=== PATIENT | male | born 1945 | race Caucasian/White ===

== ENCOUNTER 2017-10-23 11:37 | Inpatient (IN) | payer MEDICARE, OTHER ==
[~2017-10-23] VITALS: Ht 182.9 cm; Wt 83.6 kg
[~2017-10-23 11:37] MED LIST: ASPI81 PO; ATOR40TA49 PO; HYDR-3533 PO; IBUP800T23 PO; LEXA10TA PO; ZETI10TA5 PO
[2017-10-23 11:48] VITALS: BP 130/71; PULSE 65; RESP 18; TEMP 99.8; O2SAT 98
[2017-10-23] MEDS: RESP: ALBUTEROL 2.5 MG/IPRATROPIUM 0.5 MG NEB (SCH) INH ×2 (12:59→20:15)
[2017-10-23] MEDS ORDERED: methylPREDNISolone SOD SUCC 125 MG/2 ML VIAL IV PUSH ONE (13:00)
[2017-10-23] MEDS ORDERED: AZITHROMYCIN 250 MG TAB PO ONE (13:00)
[2017-10-23] MEDS ORDERED: ACETAMINOPHEN 650 MG SUPP PR ONE (13:00)
[2017-10-23] MEDS ORDERED: cefTRIAXone INJ 1,000 MG in SODIUM CHLORIDE 0.9% INJ 100 ML IV ONE (13:00)
[2017-10-23] MEDS ORDERED: SODIUM CHLORIDE 0.9% FLUSH 10 ML FLUSH IVF PRN (13:00)
--- NOTE | 2017-10-23 13:11 | PD ---
HPI Chief Complaint: Cold / Flu Symptoms Time Seen by Provider: 12:35 Travel History International Travel<30 days: Yes ([facility] ) Contact w/Intl Traveler<30days: [place] Traveled to: [facility] Traveled to known affect area: No History of Present Illness HPI 71-year-old normally very healthy male presents emergency department with 2 week history of progressively worsening productive cough, wheezing, and shortness of breath. Patient had shaking chills yesterday. Patient recently returned from a trip to [place], [facility], and the [facility]. Patient denies upper respiratory symptoms such as headache, sore throat, or ear pain. He has no abdominal pain. He has no nausea or vomiting. His chief complaint shortness of breath, cough, and wheezing. Patient has no previous history of lung disease. Patient's temperature in triage was 99.6. He was not tachycardic , and O2 sat was 97%. He has no known drug allergies. PFSH Past Medical History Heart Rhythm Problems: Yes (PAC'S, BRADYCARDIA (RESTING 40/MIN.)PT IS [employer].) High Cholesterol: Yes Cerebrovascular Accident: No Diminished Hearing: No Hypertension: Yes Myocardial Infarction: No Past Surgical History Coronary Artery Bypass Graft: Yes (triple bypass- aug 2006) Eye Surgery: Yes (CATARACT) Tonsillectomy: Yes Social History Alcohol Use: No (rarely) Tobacco Use: No Substance Use: No Allergies-Medications (Allergen,Severity, Reaction): Coded Allergies: No Known Allergies (Verified Adverse Reaction, Unknown, 10/23/17) Reported Meds & Prescriptions Reported Meds & Active Scripts Active Lortab 5 mg/325 mg (Hydrocodone/Acetaminophen 5 mg/325 mg) 1 Tab 1-2 Tab PO Q6HR PRN Ibuprofen 800 Mg Tab 800 Mg PO Q6H PRN Reported Lipitor 40 Mg Tab (Atorvastatin Calcium) 40 Mg Tab 40 Mg PO DAILY Zetia (Ezetimibe) 10 Mg Tab 10 Mg PO DAILY Lexapro (Escitalopram Oxalate) 10 Mg Tab 10 Mg PO DAILY Aspirin 81 Mg Tab 81 Mg PO DAILY Review of Systems Except as stated in HPI: all other systems reviewed are Neg General / Constitutional: Positive: Fever, Chills Eyes: No: Visual changes HENT: No: Headaches Cardiovascular: No: Chest Pain or Discomfort Respiratory: Positive: Cough, Shortness of Breath, Wheezing, Night Sweats, No: Sneezing, Orthopnea, Hemoptysis, Stridor, Pleuritic Pain, Other Gastrointestinal: No: Nausea, Vomiting, Diarrhea, Abdominal Pain Genitourinary: No: Dysuria Musculoskeletal: No: Pain Skin: No Rash Neurologic: No: Weakness Psychiatric: No: Depression Endocrine: No: Polydipsia Hematologic/Lymphatic: No: Easy Bruising Physical Exam Narrative GENERAL: Patient appears ill but not septic per SKIN: Warm and dry. Normal color. Normal turgor HEAD: Atraumatic. Normocephalic. EYES: Pupils equal and round. No scleral icterus. No injection or drainage. ENT: No nasal bleeding or discharge. Mucous membranes pink and moist. Pharynx is clear. Airways patent. TMs are clear bilaterally. NECK: Trachea midline. Supple nontender. CARDIOVASCULAR: Regular rate and rhythm. No murmurs gallops or rubs. RESPIRATORY: No accessory muscle use. Moderate wheezing throughout to auscultation. Moderate rales and rhonchi noted bilaterally. Breath sounds equal bilaterally. GASTROINTESTINAL: Abdomen soft, non-tender, nondistended. Hepatic and splenic margins not palpable. MUSCULOSKELETAL: Extremities without clubbing, cyanosis, or edema. No obvious deformities. NEUROLOGICAL: Awake and alert. No obvious cranial nerve deficits. Motor grossly within normal limits. Five out of 5 muscle strength in the arms and legs. Normal speech. PSYCHIATRIC: Appropriate mood and affect; insight and judgment normal. Data Data Last Documented VS Vital Signs Date Time Temp Pulse Resp B/P (MAP) Pulse Ox O2 Delivery O2 Flow Rate FiO2 10/23/17 11:48 99.8 65 18 130/71 (90) 98 Orders Orders Influenzae A/B Antigen (10/23/17 11:53) Group A Rapid Strep Screen (10/23/17 11:53) Electrocardiogram (10/23/17 12:46) Basic Metabolic Panel (Bmp) (10/23/17 12:46) Comprehensive Metabolic Panel (10/23/17 12:46) Lactic Acid Sepsis Protocol (10/23/17 12:46) Urinalysis - C+S If Indicated (10/23/17 12:46) Blood Culture (10/23/17 12:46) Sputum Culture And Gram Stain (10/23/17 12:46) Chest, Pa & Lat (10/23/17 12:46) Ecg Monitoring (10/23/17 12:46) Iv Access Insert/Monitor (10/23/17 12:46) Oximetry (10/23/17 12:46) Sodium Chloride 0.9% Flush (Ns Flush) (10/23/17 13:00) Ceftriaxone Inj (Rocephin Inj) (10/23/17 13:00) Azithromycin (Zithromax) (10/23/17 13:00) Acetaminophen Supp (Tylenol Supp) (10/23/17 13:00) Albuterol-Ipratropium Neb (Duoneb Neb) (10/23/17 13:00) Methylprednisolone So Succ Inj (Solumedr (10/23/17 13:00) Acetaminophen (Tylenol) (10/23/17 13:15) Strep Culture (Group A) (10/23/17 12:00) Sodium Chlor 0.9% 1000 Ml Inj (Ns 1000 M (10/23/17 16:04) Complete Blood Count With Diff (10/23/17 16:48) Labs Laboratory Tests Test 10/23/17 13:30 10/23/17 15:10 10/23/17 15:22 White Blood Count 15.2 TH/MM3 Red Blood Count 4.35 MIL/MM3 Hemoglobin 14.0 GM/DL Hematocrit 40.2 % Mean Corpuscular Volume 92.5 FL Mean Corpuscular Hemoglobin 32.3 PG Mean Corpuscular Hemoglobin Concent 34.9 % Red Cell Distribution Width 13.4 % Platelet Count 293 TH/MM3 Mean Platelet Volume 9.4 FL Neutrophils (%) (Auto) 72.8 % Lymphocytes (%) (Auto) 16.5 % Monocytes (%) (Auto) 8.9 % Eosinophils (%) (Auto) 1.4 % Basophils (%) (Auto) 0.4 % Neutrophils # (Auto) 11.1 TH/MM3 Lymphocytes # (Auto) 2.5 TH/MM3 Monocytes # (Auto) 1.4 TH/MM3 Eosinophils # (Auto) 0.2 TH/MM3 Basophils # (Auto) 0.1 TH/MM3 CBC Comment DIFF FINAL Differential Comment Urine Color YELLOW Urine Turbidity CLEAR Urine pH 7.0 Urine Specific [place] 1.024 Urine Protein 100 mg/dL Urine Glucose (UA) NEG mg/dL Urine Ketones NEG mg/dL Urine Occult Blood NEG Urine Nitrite NEG Urine Bilirubin NEG Urine Urobilinogen LESS THAN 2.0 MG/DL Urine Leukocyte Esterase NEG Urine WBC LESS THAN 1 /hpf Urine Mucus FEW /lpf Microscopic Urinalysis Comment CULT NOT INDICATED Lactic Acid Level 2.8 mmol/L MDM Medical Decision Making Medical Screen Exam Complete: Yes Emergency Medical Condition: Yes Differential Diagnosis Febrile illness. Pneumonia. Bronchitis. Wheezing. Narrative Course Patient appears medically stable at time of exam. Labs ordered including CBC, CMP, lactic acid, and coagulation studies. Blood cultures 2 as well as sputum cultures ordered. IV access is obtained. Patient is given 1000 mg Rocephin IV as well as 500 mg azithromycin p.o. Patient is given 650 mg Tylenol p.o. Patient is given 125 mg Solu-Medrol IV. Patient is given 1000 mL's normal saline bolus. Patient is given DuoNeb 3. Chest x-ray PA and lateral ordered. CBC showed leukocytosis of 15.2. CMP still pending at 1715 due to recollect. Lactic acid 2.8 Urinalysis is unremarkable. Patient is given 2 L normal saline bolus. Calls placed to hospitalist for admission. Sepsis Criteria SIRS Criteria (2 or more): Temp > 100.9 or < 96.8, WBC > 27392, < 4000 or > 10 % bands Sepsis Criteria (SIRS+source): Infect source susp/known Severe Sepsis (+one): Lactate >2 Criteria Outcome: Meets SIRS criteria, Meets sepsis criteria, Meets severe sepsis criteria Diagnosis Primary Impression: Sepsis Qualified Codes: A41.9 - Sepsis, unspecified organism Additional Impressions: Right lower lobe pneumonia Qualified Codes: J18.1 - Lobar pneumonia, unspecified organism Wheezing Admitting Information Admitting Physician Requests: Admit Disposition: DISCHARGE HOME Condition: Stable Jun Gimenez Oct 23, 2017 13:11
[2017-10-23] MEDS ORDERED: ACETAMINOPHEN 325 MG TAB PO ONE (13:15)
--- NOTE | 2017-10-23 14:31 | RADRPT ---
EXAM DATE/TIME: 10/23/2017 13:36 [facility] COMPARISON: No previous studies available for comparison. INDICATIONS : Short of breath, coughing, cold symptoms, and general weakness for 4 weeks MEDICAL HISTORY : Cardiovascular disease. SURGICAL HISTORY : CABG. ENCOUNTER: Initial ACUITY: 1 month PAIN SCORE: 0/10 LOCATION: Bilateral chest FINDINGS: Median sternotomy wires and postsurgical features of prior CABG. Very subtle patchy airspace disease in the lower lobes bilaterally. Cardiomediastinal contours are within normal limits. Bony thorax is i ntact. CONCLUSION: 1. Post surgical features with subtle bilateral lower lobe patchy airspace disease, presumably atelec tasis. Uri Suero MD on October 23, 2017 at 14:28 Board Certified Radiologist. This report was verified electronically.
[2017-10-23 15:56] LABS: BILIRUBIN, URINE NEG (NEG); BLOOD, URINE NEG (NEG); GLUCOSE,URINE NEG (NEG); KETONE, URINE NEG (NEG); MUCUS URINE FEW /lpf (OCC); NITRITE,URINE NEG (NEG); URINE COLOR YELLOW (YELLW/STRAW); URINE LEUKOCYTE ESTERASE NEG (NEG)
[2017-10-23 16:01] LABS: LACTIC ACID SEPSIS PROTOCOL 2.8 mmol/L (0.4-2.0)
[2017-10-23 16:55] LABS: AUTOMATED NEUTROPHIL # 11.1 TH/MM3 (1.8-7.7); BASOPHIL # 0.1 TH/MM3 (0-0.2); BASOPHIL % 0.4 % (0.0-2.0); EOSINOPHIL # 0.2 TH/MM3 (0-0.4); EOSINOPHIL % 1.4 % (0.0-4.0); HEMATOCRIT 40.2 % (39.0-51.0); LYMPH % 16.5 % (9.0-44.0); LYMPHOCYTE # 2.5 TH/MM3 (1.0-4.8); MEAN CELL VOLUME 92.5 FL (80.0-100.0); MEAN CORPUSCULAR HEMOGLOBIN 32.3 PG (27.0-34.0); MEAN CORPUSCULAR HGB CONC 34.9 % (32.0-36.0); MEAN PLATELET VOLUME 9.4 FL (7.0-11.0); MONO % 8.9 % (0.0-8.0); MONOCYTE # 1.4 TH/MM3 (0-0.9); NEUT % 72.8 % (16.0-70.0); PLATELET COUNT 293 TH/MM3 (150-450); RED BLOOD COUNT 4.35 MIL/MM3 (4.50-5.90); RED CELL DISTRIBUTION WIDTH 13.4 % (11.6-17.2); WHITE BLOOD COUNT 15.2 TH/MM3 (4.0-11.0)
[2017-10-23] MEDS: SODIUM CHLOR 0.9% 1000 ML INJ 1,000 ML IV SCH ×3 (17:19→21:28)
[2017-10-23 17:20] VITALS: BP 106/52; PULSE 68; RESP 27; O2SAT 93
[2017-10-23 17:22] VITALS: O2SAT 95
[2017-10-23 17:56] LABS: ALBUMIN 2.9 GM/DL (3.4-5.0); ALT (GPT) 20 U/L (12-78); AST (GOT) 26 U/L (15-37); BICARBONATE 22.6 MEQ/L (21.0-32.0); BLOOD UREA NITROGEN 14 MG/DL (7-18); CALCIUM 8.7 MG/DL (8.5-10.1); CHLORIDE 102 MEQ/L (98-107); CREATININE 1.31 MG/DL (0.60-1.30); GLOMERULAR FILTRATION RATE 54 ML/MIN (>89); GLUCOSE,RANDOM 185 MG/DL (74-106); SODIUM (NA) 137 MEQ/L (136-145)
[2017-10-23 17:59] LABS: ALKALINE PHOSPHATASE 86 U/L (45-117); TOTAL BILIRUBIN ADULT 0.5 MG/DL (0.2-1.0); TOTAL PROTEIN 7.2 GM/DL (6.4-8.2)
[2017-10-23] MEDS ORDERED: RESP: ALBUTEROL 2.5 MG/IPRATROPIUM 0.5 MG NEB (SCH) NEB ONE (18:00)
[2017-10-23] MEDS ORDERED: NALOXONE HCL 0.4 MG/ML AMP IV PUSH PRN (18:15)
[2017-10-23] MEDS ORDERED: SODIUM CHLORIDE 0.9% FLUSH 10 ML FLUSH IV FLUSH PRN (18:15)
[2017-10-23] MEDS ORDERED: guaiFENesin/DEXTROMETHORPHAN 200 MG/20 MG/10 ML CUP PO PRN (18:15)
[2017-10-23] MEDS ORDERED: RESP: ALBUTEROL 2.5 MG/3 ML NEB (PRN) INH (18:15)
[2017-10-23] MEDS ORDERED: SODIUM CHLOR 0.9% 1000 ML INJ 400 ML IV ONE (18:51)
[2017-10-23] MEDS ORDERED: VANCOMYCIN INJ 1,000 MG in SODIUM CHLOR 0.9% 250 ML INJ 250 ML IV STA (18:51)
[2017-10-23] MEDS ORDERED: SODIUM CHLOR 0.9% 1000 ML INJ 1,000 ML IV ONE ×2 (18:51)
--- NOTE | 2017-10-23 18:51 | HHI.HP ---
HPI Service [facility] Primary Care Physician Umair Perales, Admission Diagnosis Sepsis/Pneumonia Diagnoses: Chief Complaint: Coughing and shortness of breath Travel History International Travel<30 Days: Yes ([place] [facility] ) Contact w/Intl Traveler <30 Da: [place] Traveled to: [place], [facility], AND [facility] Traveled to Known Affected Are: No Sepsis Criteria SIRS Criteria (2 or more): RR > 20 or PaCO2 < 32, WBC > 63719, < 4000 or > 10 % bands Sepsis Criteria (SIRS+source): Infect source susp/known Severe Sepsis (+one): Lactate >2 Criteria Outcome: Meets severe sepsis criteria History of Present Illness 71-year-old white male with history of hyperlipidemia presents with a 4 week history of progressive worsening shortness of breath and persistent cough. He also reports associated sore throat and sinus congestion. He has had increased fatigue and weakness due to the persistent symptoms. He reports some mild fever but no significant chills. He denies any symptoms of dysuria nor any diarrhea. He has not had any nausea or vomiting but has had decreased oral intake. He had recently traveled to [facility] in the [facility] also with his at bedside who does not have any of his symptoms. He denies any history of asthma or any lung disease. He states taking [id number] medication has not improved his symptoms. 0 Review of Systems Constitutional: COMPLAINS OF: Fatigue, Fever, Chills, Change in appetite Endocrine: DENIES: Heat/cold intolerance Eyes: DENIES: Blurred vision, Eye pain, Vision loss Ears, nose, mouth, throat: COMPLAINS OF: Nasal discharge, Throat pain, Running Nose, DENIES: Hearing loss, Ear Pain, Sinus Pain Respiratory: COMPLAINS OF: Cough, Shortness of breath, DENIES: Sputum production Cardiovascular: DENIES: Chest pain, Palpitations, Dyspnea on Exertion, Lower Extremity Edema Gastrointestinal: DENIES: Abdominal pain, Black stools, Bloody stools, Constipation, Diarrhea, Nausea, Vomiting Musculoskeletal: DENIES: Joint pain, Muscle aches, Stiffness Integumentary: DENIES: Rash Hematologic/lymphatic: DENIES: Bruising, Lymphadenopathy Immunologic/allergic: DENIES: Eczema Neurologic: DENIES: Headache, Localized weakness, Paresthesias Psychiatric: DENIES: Anxiety, Depression, Suicidal Ideation Past Family Social History Past Medical History Hyperlipidemia Past Surgical History CABG. Cataract surgery. Reported Medications Aspirin 81 mg p.o. daily Lipitor 40 mg p.o. daily Lexapro 10 mg p.o. daily Zetia 10 mg p.o. daily Lortab 5/325 mg p.o. every 6 hours as needed for pain Ibuprofen 800 mg p.o. q. 6 as needed for pain Allergies: Coded Allergies: No Known Allergies (Verified Adverse Reaction, Unknown, 10/23/17) Family History Mother had [place] Father had colon cancer Social History Does not smoke cigarettes or drink alcohol Physical Exam Vital Signs Vital Signs Date Time Temp Pulse Resp B/P (MAP) Pulse Ox O2 Delivery O2 Flow Rate FiO2 10/23/17 17:22 95 Nasal Cannula 1.00 10/23/17 17:20 68 27 106/52 (70) 93 Room Air 10/23/17 11:48 99.8 65 18 130/71 (90) 98 Physical Exam GENERAL: This is a well-nourished, well-developed patient, in no apparent distress. SKIN: No rashes, ecchymoses or lesions. Cool and dry. HEAD: Atraumatic. Normocephalic. No temporal or scalp tenderness. EYES: Pupils equal round and reactive. Extraocular motions intact. No scleral icterus. No injection or drainage. ENT: Nose without bleeding, purulent drainage or septal hematoma. Oropharynx erythematous, NECK: Trachea midline. No JVD or lymphadenopathy. Supple, nontender, no meningeal signs. CARDIOVASCULAR: Regular rate and rhythm without murmurs, gallops, or rubs. RESPIRATORY: Left basilar crackles and rhonchi GASTROINTESTINAL: Abdomen soft, non-tender, nondistended. No hepato-splenomegaly , or palpable masses. No guarding. MUSCULOSKELETAL: Extremities without clubbing, cyanosis, or edema. NEUROLOGICAL: Awake and alert. Cranial nerves II through XII intact. Motor and sensory grossly within normal limits. Five out of 5 muscle strength in all muscle groups. Normal speech. Laboratory Laboratory Tests Test 10/23/17 13:30 10/23/17 15:10 10/23/17 15:22 10/23/17 17:25 White Blood Count 15.2 Red Blood Count 4.35 Hemoglobin 14.0 Hematocrit 40.2 Mean Corpuscular Volume 92.5 Mean Corpuscular Hemoglobin 32.3 Mean Corpuscular Hemoglobin Concent 34.9 Red Cell Distribution Width 13.4 Platelet Count 293 Mean Platelet Volume 9.4 Neutrophils (%) (Auto) 72.8 Lymphocytes (%) (Auto) 16.5 Monocytes (%) (Auto) 8.9 Eosinophils (%) (Auto) 1.4 Basophils (%) (Auto) 0.4 Neutrophils # (Auto) 11.1 Lymphocytes # (Auto) 2.5 Monocytes # (Auto) 1.4 Eosinophils # (Auto) 0.2 Basophils # (Auto) 0.1 CBC Comment DIFF FINAL Differential Comment Urine Color YELLOW Urine Turbidity CLEAR Urine pH 7.0 Urine Specific [place] 1.024 Urine Protein 100 Urine Glucose (UA) NEG Urine Ketones NEG Urine Occult Blood NEG Urine Nitrite NEG Urine Bilirubin NEG Urine Urobilinogen LESS THAN 2.0 Urine Leukocyte Esterase NEG Urine WBC LESS THAN 1 Urine Mucus FEW Microscopic Urinalysis Comment CULT NOT INDICATED Lactic Acid Level 2.8 Blood Urea Nitrogen 14 Creatinine 1.31 Random Glucose 185 Total Protein 7.2 Albumin 2.9 Calcium Level 8.7 Alkaline Phosphatase 86 Aspartate Amino Transf (AST/SGOT) 26 Alanine Aminotransferase (ALT/SGPT) 20 Total Bilirubin 0.5 Sodium Level 137 Potassium Level 4.0 Chloride Level 102 Carbon Dioxide Level 22.6 Anion Gap 12 Estimat Glomerular Filtration Rate 54 Test 10/23/17 17:30 Lactic Acid Level 4.7 Date/Time Source Procedure Growth Status 10/23/17 13:30 Blood Peripheral Aerobic Blood Culture Pending Received 10/23/17 13:30 Blood Peripheral Anaerobic Blood Culture Pending Received 10/23/17 13:30 Sputum Expectorated Sputum Gram Stain - Final Resulted 10/23/17 13:30 Sputum Expectorated Sputum Sputum Culture Pending Resulted Result Diagram: 10/23/17 1330 10/23/17 1725 Imaging Last Impressions Chest X-Ray 10/23/17 1246 Signed Impressions: Service Date/Time: Monday, October 23, 2017 13:36 - CONCLUSION: 1. Post surgical features with subtle bilateral lower lobe patchy airspace disease, presumably atelectasis. MD Jayne Pacheco VTE Risk Assessment Caprini VTE Risk Assessment: Mod/High Risk (score >= 2) Caprini Risk Assessment Model Point Value = 1 Point Value = 2 Point Value = 3 Point Value = 5 Age 41-60 Minor surgery BMI > 25 kg/m2 Swollen legs Varicose veins or History of unexplained or recurrent spontaneous Oral contraceptives or hormone replacement Sepsis (< 1 month) Serious lung disease, including pneumonia (< 1 month) Abnormal pulmonary function Acute myocardial infarction Congestive heart failure (< 1 month) History of inflammatory bowel disease Medical patient at bed rest Age 61-74 Arthroscopic surgery Major open surgery (> 45 min) Laparoscopic surgery (> 45 min) Malignancy Confined to bed (> 72 hours) Immobilizing plaster cast Central venous access Age >= 75 History of VTE Family history of VTE Factor V Leiden Prothrombin [id number] Lupus anticoagulant Anticardiolipin antibodies Elevated serum homocysteine Heparin-induced thrombocytopenia Other congenital or acquired thrombophilia Stroke (< 1 month) Elective arthroplasty Hip, pelvis, or leg fracture Acute spinal cord injury (< 1 month) Prophylaxis Regimen Total Risk Factor Score Risk Level Prophylaxis Regimen 0-1 Low Early ambulation 2 Moderate Order ONE of the following: *Sequential Compression Device (SCD) *Heparin 5000 units SQ BID 3-4 Higher Order ONE of the following medications: *Heparin 5000 units SQ TID *Enoxaparin/Lovenox 40 mg SQ daily (WT < 150 kg, CrCl > 30 mL/min) *Enoxaparin/Lovenox 30 mg SQ daily (WT < 150 kg, CrCl > 10-29 mL/min) *Enoxaparin/Lovenox 30 mg SQ BID (WT < 150 kg, CrCl > 30 mL/min) AND/OR *Sequential Compression Device (SCD) 5 or more Highest Order ONE of the following medications: *Heparin 5000 units SQ TID (Preferred with Epidurals) *Enoxaparin/Lovenox 40 mg SQ daily (WT < 150 kg, CrCl > 30 mL/min) *Enoxaparin/Lovenox 30 mg SQ daily (WT < 150 kg, CrCl > 10-29 mL/min) *Enoxaparin/Lovenox 30 mg SQ BID (WT < 150 kg, CrCl > 30 mL/min) AND *Sequential Compression Device (SCD) Assessment and Plan Assessment and Plan 1. Severe sepsis present on admission due to likely underlying community- acquired pneumonia with presenting symptoms of leukocytosis and tachypnea -IV fluid hydration, IV Rocephin and Zithromax with repeat lactic acid pending. Bronchodilators and supportive care. Follow-up with blood cultures. Consider infectious disease consultation if symptoms does not improve due to recent international travels. 2. History of hyperlipidemia- continue with Zetia and Lipitor. 3. DVT prophylaxis Lovenox. Physician Certification 2 Midnight Certification Type: Admission for Inpatient Services Order for Inpatient Services The services are ordered in accordance with Medicare regulations or non- Medicare payer requirements, as applicable. In the case of services not specified as inpatient-only, they are appropriately provided as inpatient services in accordance with the 2-midnight benchmark. Estimated LOS (days): 3 days is the estimated time the patient will need to remain in the hospital, assuming treatment plan goals are met and no additional complications. Post-Hospital Plan: Home Glory Anaya MD Oct 23, 2017 18:51
[2017-10-23] MEDS ORDERED: GENTAMICIN INJ 200 MG in SODIUM CHLORIDE 0.9% INJ 100 ML IV ONE (20:00)
[2017-10-23 21:00] VITALS: PULSE 86
[2017-10-23] MEDS: SODIUM CHLORIDE 0.9% FLUSH 10 ML FLUSH IV FLUSH SCH (21:00)
[2017-10-23] MEDS: ENOXAPARIN SODIUM 40 MG/0.4 ML SYRINGE SQ SCH (21:36)
[2017-10-23 22:19] VITALS: BP 147/64; PULSE 87; RESP 20; TEMP 98.4; O2SAT 95
[2017-10-24] VITALS (12 sets, daily range): BP systolic 130–166; BP diastolic 61–77; PULSE 57–87; RESP 14–20; TEMP 97.8–98.8; O2SAT 90–98
[2017-10-24] MEDS: SODIUM CHLOR 0.9% 1000 ML INJ 1,000 ML IV SCH ×2 (05:25→16:25)
[2017-10-24 07:27] LABS: AUTOMATED NEUTROPHIL # 12.3 TH/MM3 (1.8-7.7); HEMOGLOBIN 12.2 GM/DL (13.0-17.0); LYMPH % 7.5 % (9.0-44.0); MEAN CELL VOLUME 91.9 FL (80.0-100.0); MEAN CORPUSCULAR HEMOGLOBIN 31.3 PG (27.0-34.0); MEAN PLATELET VOLUME 8.1 FL (7.0-11.0); MONO % 4.3 % (0.0-8.0); MONOCYTE # 0.6 TH/MM3 (0-0.9); NEUT % 88.2 % (16.0-70.0); PLATELET COUNT 218 TH/MM3 (150-450); RED BLOOD COUNT 3.91 MIL/MM3 (4.50-5.90); RED CELL DISTRIBUTION WIDTH 13.2 % (11.6-17.2)
[2017-10-24 08:07] LABS: BICARBONATE 20.9 MEQ/L (21.0-32.0); CALCIUM 8.6 MG/DL (8.5-10.1); CREATININE 0.79 MG/DL (0.60-1.30)
[2017-10-24] MEDS: RESP: ALBUTEROL 2.5 MG/IPRATROPIUM 0.5 MG NEB (SCH) INH ×4 (08:42→19:24)
[2017-10-24] MEDS: SODIUM CHLORIDE 0.9% FLUSH 10 ML FLUSH IV FLUSH SCH ×2 (09:00→20:59)
--- NOTE | 2017-10-24 09:53 | EKG ---
Date Performed: 10/23/2017 Time Performed: 13:50:58 PTAGE: 71 years EKG: Sinus rhythm WITH SINUS ARRHYTHMIA INCOMPLETE RIGHT BUNDLE BRANCH BLOCK MODERATE ST DEPRESSION PROLONGED QT INTER MALU ABNORMAL ECG PREVIOUS TRACING : 08/27/2007 10.54 DOCTOR: Rohit Rosales Interpretating Date/Time 10/24/2017 09:51:33
[2017-10-24] MEDS ORDERED: cefTRIAXone INJ 1,000 MG in SODIUM CHLORIDE 0.9% INJ 100 ML IV SCH (13:00)
[2017-10-24] MEDS ORDERED: AZITHROMYCIN INJ 500 MG in SODIUM CHLOR 0.9% 250 ML INJ 250 ML IV SCH (14:00)
--- NOTE | 2017-10-24 15:22 | PD.ID.CON ---
History of Present Illness Service ID Consult Requested By Reason for Consult Evaluation and management of sepsis, pneumonia Primary Care Physician Umair Perales, Diagnoses: History of Present Illness is a 71 y/o CM with history of hyperlipidemia presents with a 4 week history of progressive worsening shortness of breath and persistent cough. He also reports associated sore throat and sinus congestion. He has had increased fatigue and weakness due to the persistent symptoms. He reports some mild fever but no significant chills. He denies any symptoms of dysuria nor any diarrhea. He has not had any nausea or vomiting but has had decreased oral intake. He had recently traveled to [place], [facility] and the [facility] in Sep 2017. His who was also with him for this journey is at his bedside and does not have any of his symptoms. He denies any history of asthma or any lung disease. He states taking njjd-ndt-[id number] medication has not improved his symptoms. He denies any body aches Denies any petechia or any subq or mucosal bleeding. He denies any headaches, myalgias or body aches. He denies any pain in calves. ID consulted for evaluation and mment of Sepsis, pneumonia. Review of Systems Constitutional: COMPLAINS OF: Fatigue, DENIES: Diaphoretic episodes, Fever, Weight gain, Weight loss, Chills, Dizziness, Change in appetite, Night Sweats Endocrine: DENIES: Heat/cold intolerance, Polydipsia, Polyuria, Polyphagia Eyes: DENIES: Blurred vision, Diplopia, Eye inflammation, Eye pain, Vision loss , Photosensitivity, Double Vision Ears, nose, mouth, throat: DENIES: Tinnitus, Hearing loss, Vertigo, Nasal discharge, Oral lesions, Throat pain, Hoarseness, Ear Pain, Running Nose, Epistaxis, Sinus Pain, Toothache, Odynophagia Respiratory: COMPLAINS OF: Cough, Shortness of breath, DENIES: Apneas, Snoring , Wheezing, Hemoptysis, Sputum production Cardiovascular: DENIES: Chest pain, Palpitations, Syncope, Dyspnea on Exertion , PND, Lower Extremity Edema, Orthopnea, Claudication Gastrointestinal: DENIES: Abdominal pain, Black stools, Bloody stools, Constipation, Diarrhea, Nausea, Vomiting, Difficulty Swallowing, Anorexia Genitourinary: DENIES: Sexual dysfunction, Urinary frequency, Urinary incontinence, Urgency, Hematuria, Dysuria, Nocturia, Penile Discharge, Testicular Pain, Testicular Swelling Musculoskeletal: DENIES: Joint pain, Muscle aches, Stiffness, Joint Swelling, Back pain, Neck pain Integumentary: DENIES: Abnormal pigmentation, Nail changes, Pruritus, Rash Hematologic/lymphatic: DENIES: Bruising, Lymphadenopathy Immunologic/allergic: DENIES: Eczema, Urticaria Neurologic: DENIES: Abnormal gait, Headache, Localized weakness, Paresthesias, Seizures, Speech Problems, Tremor, Poor Balance Psychiatric: DENIES: Anxiety, Confusion, Mood changes, Depression, Hallucinations, Agitation, Suicidal Ideation, Homicidal Ideation, Delusions Except as stated in HPI: all other systems reviewed are Neg Past Family Social History Allergies: Coded Allergies: No Known Allergies (Verified Allergy, Unknown, 10/23/17) Past Medical History Hyperlipidemia Past Surgical History CABG. Cataract surgery. Reported Medications Reported Meds & Active Scripts Active Lortab 5 mg/325 mg (Hydrocodone/Acetaminophen 5 mg/325 mg) 1 Tab 1-2 Tab PO Q6HR PRN Ibuprofen 800 Mg Tab 800 Mg PO Q6H PRN Reported Lipitor 40 Mg Tab (Atorvastatin Calcium) 40 Mg Tab 40 Mg PO DAILY Zetia (Ezetimibe) 10 Mg Tab 10 Mg PO DAILY Lexapro (Escitalopram Oxalate) 10 Mg Tab 10 Mg PO DAILY Aspirin 81 Mg Tab 81 Mg PO DAILY Active Ordered Medications Current Medications Medications (Trade) Dose Ordered Sig/Marlena Route Start Time Stop Time Status Last Admin Sodium Chloride 1,000 ml @ 100 mls/hr Q10H IV 10/23/17 19:00 10/24/17 05:25 (NS Flush) 2 ml UNSCH PRN IV FLUSH 10/23/17 18:15 (NS Flush) 2 ml BID IV FLUSH 10/23/17 21:00 (Narcan Inj) 0.4 mg UNSCH PRN IV PUSH 10/23/17 18:15 Ceftriaxone Sodium 1000 mg/ Sodium Chloride 100 ml @ 200 mls/hr Q24H IV 10/24/17 13:00 10/24/17 12:49 Azithromycin 500 mg/Sodium Chloride 250 ml @ 250 mls/hr Q24H IV 10/24/17 14:00 10/24/17 14:05 (Duoneb Neb) 1 ampule QID NEB INH 10/23/17 20:00 10/24/17 08:42 (Albuterol Neb) 2.5 mg Q2HR NEB PRN INH 10/23/17 18:15 (Robitussin Dm 200-20 Mg/10 ml Liq) 10 ml Q4H PRN PO 10/23/17 18:15 (Lovenox Inj) 40 mg Q24H SQ 10/23/17 20:00 10/23/17 21:36 Family History Mother had MT Father had colon cancer Social History Does not smoke cigarettes or drink alcohol. Reports he has participated in [employer] and is very active. Physical Exam Vital Signs Vital Signs Date Time Temp Pulse Resp B/P (MAP) Pulse Ox O2 Delivery O2 Flow Rate FiO2 10/24/17 12:00 97.8 62 20 130/61 (84) 94 10/24/17 11:50 64 10/24/17 08:00 Room Air 10/24/17 08:00 98.8 75 20 155/72 (99) 95 10/24/17 07:56 87 10/24/17 05:37 98.8 71 16 166/77 (106) 90 10/24/17 04:00 Room Air 10/24/17 04:00 65 10/24/17 02:21 98.6 77 14 132/63 (86) 98 10/24/17 00:00 75 10/24/17 00:00 Room Air 10/23/17 22:19 98.4 87 20 147/64 (91) 95 10/23/17 21:00 86 10/23/17 21:00 Room Air 10/23/17 17:22 95 Nasal Cannula 1.00 10/23/17 17:20 68 27 106/52 (70) 93 Room Air Physical Exam GENERAL: This is a well-nourished, well-developed patient, in no apparent distress. SKIN: No rashes, ecchymoses or lesions. Cool and dry. HEAD: Atraumatic. Normocephalic. No temporal or scalp tenderness. EYES: Pupils equal round and reactive. Extraocular motions intact. No scleral icterus. No injection or drainage. ENT: Nose without bleeding, purulent drainage or septal hematoma. Throat with erythema, tonsillar hypertrophy but no exudate. Uvula midline. Airway patent. NECK: Trachea midline. Supple, nontender, no meningeal signs. CARDIOVASCULAR: HS audible. RESPIRATORY: Clear to auscultation. Breath sounds equal bilaterally. GASTROINTESTINAL: Abdomen soft, non-tender, nondistended. MUSCULOSKELETAL: Extremities without clubbing, cyanosis, or edema. NEUROLOGICAL: Awake and alert. Non focal exam. Psych cooperative IV line sites with no e.o infection. Laboratory Laboratory Tests Test 10/23/17 15:22 10/23/17 17:25 10/23/17 17:30 10/24/17 06:50 Lactic Acid Level 2.8 4.7 Blood Urea Nitrogen 14 17 Creatinine 1.31 0.79 Random Glucose 185 166 Total Protein 7.2 Albumin 2.9 Calcium Level 8.7 8.6 Alkaline Phosphatase 86 Aspartate Amino Transf (AST/SGOT) 26 Alanine Aminotransferase (ALT/SGPT) 20 Total Bilirubin 0.5 Sodium Level 137 138 Potassium Level 4.0 5.0 Chloride Level 102 111 Carbon Dioxide Level 22.6 20.9 Anion Gap 12 6 Estimat Glomerular Filtration Rate 54 97 White Blood Count 14.0 Red Blood Count 3.91 Hemoglobin 12.2 Hematocrit 36.0 Mean Corpuscular Volume 91.9 Mean Corpuscular Hemoglobin 31.3 Mean Corpuscular Hemoglobin Concent 34.0 Red Cell Distribution Width 13.2 Platelet Count 218 Mean Platelet Volume 8.1 Neutrophils (%) (Auto) 88.2 Lymphocytes (%) (Auto) 7.5 Monocytes (%) (Auto) 4.3 Eosinophils (%) (Auto) 0.0 Basophils (%) (Auto) 0.0 Neutrophils # (Auto) 12.3 Lymphocytes # (Auto) 1.0 Monocytes # (Auto) 0.6 Eosinophils # (Auto) 0.0 Basophils # (Auto) 0.0 CBC Comment DIFF FINAL Differential Comment Date/Time Source Procedure Growth Status 10/23/17 13:30 Blood Peripheral Aerobic Blood Culture - Preliminary NO GROWTH IN 1 DAY Resulted 10/23/17 13:30 Blood Peripheral Anaerobic Blood Culture - Preliminary NO GROWTH IN 1 DAY Resulted 10/23/17 13:30 Sputum Expectorated Sputum Gram Stain - Final Resulted 10/23/17 13:30 Sputum Expectorated Sputum Sputum Culture - Preliminary HEAVY GROWTH NORMAL RESPIRATORY STEPHANIE... Resulted Result Diagram: 10/24/17 0650 10/24/17 0650 Imaging Last Impressions Chest X-Ray 10/23/17 1246 Signed Impressions: Service Date/Time: Monday, October 23, 2017 13:36 - CONCLUSION: 1. Post surgical features with subtle bilateral lower lobe patchy airspace disease, presumably atelectasis. Uri Suero MD Assessment and Plan Assessment and Plan Severe sepsis present on admission Pneumonia Elevated lactic acid: sepsis related. Laryngitis with faint voice. Acute renal failure on admission: likely sepsis related or prerenal now resolved. Recs: DC Vanco IV DC Ceftriaxone IV No more Genta needed DC Azithro oral. Start Levaquin oral. CT chest with PE protocol r.o PE or pneumonitis/pneumonia better imaging matt in view of extensive travel history. Urine legionella antigen Urine pneumo antigen Follow cultures follow clinically. If CT chest ok, all other cultures negative and clinically improved on levaquin will consider discharge home in am. nitish talbert patient and in room. Peyton Sanchez MD Oct 24, 2017 15:22
[2017-10-24] MEDS: LEVOFLOXACIN 500 MG TAB PO SCH (16:24)
--- NOTE | 2017-10-24 16:55 | HHI.PR ---
Subjective Remarks In bed with sob, wheezing and nonproductive cough. No fevr or chills No n/v/d/c. Objective Vitals Vital Signs Date Time Temp Pulse Resp B/P (MAP) Pulse Ox O2 Delivery O2 Flow Rate FiO2 10/24/17 16:00 97.8 59 20 138/63 (88) 96 10/24/17 12:00 97.8 62 20 130/61 (84) 94 10/24/17 11:50 64 10/24/17 08:00 Room Air 10/24/17 08:00 98.8 75 20 155/72 (99) 95 10/24/17 07:56 87 10/24/17 05:37 98.8 71 16 166/77 (106) 90 10/24/17 04:00 Room Air 10/24/17 04:00 65 10/24/17 02:21 98.6 77 14 132/63 (86) 98 10/24/17 00:00 75 10/24/17 00:00 Room Air 10/23/17 22:19 98.4 87 20 147/64 (91) 95 10/23/17 21:00 86 10/23/17 21:00 Room Air 10/23/17 17:22 95 Nasal Cannula 1.00 10/23/17 17:20 68 27 106/52 (70) 93 Room Air I/O 10/23/17 10/23/17 10/23/17 10/24/17 10/24/17 10/24/17 07:00 15:00 23:00 07:00 15:00 23:00 Intake Total 1100 ml 880 ml 250 ml Balance 1100 ml 880 ml 250 ml Intake Oral 780 ml IV Total 1100 ml 100 ml 250 ml # Voids 3 Result Diagram: 10/24/17 0650 10/24/17 0650 Imaging Last Impressions Chest X-Ray 10/23/17 1246 Signed Impressions: Service Date/Time: Monday, October 23, 2017 13:36 - CONCLUSION: 1. Post surgical features with subtle bilateral lower lobe patchy airspace disease, presumably atelectasis. Uri Suero MD Objective Remarks GENERAL: This is a well-nourished, well-developed patient, in no apparent distress. CARDIOVASCULAR: Regular rate and rhythm without murmurs, gallops, or rubs. RESPIRATORY: Left basilar crackles and rhonchi GASTROINTESTINAL: Abdomen soft, non-tender, nondistended. No hepato-splenomegaly , or palpable masses. No guarding. MUSCULOSKELETAL: Extremities without clubbing, cyanosis, or edema. NEUROLOGICAL: Awake and alert. Cranial nerves II through XII intact. Motor and sensory grossly within normal limits. Five out of 5 muscle strength in all muscle groups. Normal speech. A/P Assessment and Plan 1. Severe sepsis present on admission due to likely underlying community- acquired pneumonia with presenting symptoms of leukocytosis and tachypnea -IV fluid hydration, IV Rocephin and Zithromax with repeat lactic acid pending. Bronchodilators and supportive care. Follow-up with blood cultures. Consult infectious disease, appreciate recommendations, discussed with Dr Daniel STEVENS recent international travels. DC IV abx . Start Levaquin oral. CT chest with PE protocol r.o PE or pneumonitis/pneumonia better imaging matt in view of extensive travel history. Check Urine legionella antigen, Urine pneumo antigen Follow cultures follow clinically. If CT chest ok, all other cultures negative and clinically improved on levaquin will consider discharge home in am. 2. History of hyperlipidemia- continue with Zetia and Lipitor. 3. DVT prophylaxis Lovenox. Discussed with the patient, nurse, ID specialist Faye Van MD Oct 24, 2017 16:55
[2017-10-24] MEDS ORDERED: ACETAMINOPHEN/CODEINE ELIX 120 MG/12 MG/5 ML CUP PO PRN (17:00)
[2017-10-24] MEDS ORDERED: predniSONE 20 MG TAB PO ONE (17:15)
[2017-10-24] MEDS ORDERED: RESP: ALBUTEROL 2.5 MG/IPRATROPIUM 0.5 MG NEB (PRN) ONE (18:31)
[2017-10-24] MEDS ORDERED: IOHEXOL 350 MG/ML 10 ML VIAL (for RAD DIAG) IVCONTRAST ONE (20:45)
[2017-10-24] MEDS: guaiFENesin E.R. 600 MG TAB PO SCH (20:58)
[2017-10-24] MEDS: ENOXAPARIN SODIUM 40 MG/0.4 ML SYRINGE SQ SCH (20:58)
[2017-10-24] MEDS: predniSONE 20 MG TAB PO SCH (20:58)
--- NOTE | 2017-10-24 21:05 | RADRPT ---
EXAM DATE/TIME: 10/24/2017 20:29 [facility] COMPARISON: CHEST PA & LAT, October 23, 2017, 13:36. INDICATIONS : Shortness of breath; rule out pulmonary embolus. IV CONTRAST: 74 cc Omnipaque 350 (iohexol) IV RADIATION DOSE: 9.33 CTDIvol (mGy) MEDICAL HISTORY : Cardiovascular disease. Hypertension. SURGICAL HISTORY : CABG ENCOUNTER: Initial ACUITY: 1 day PAIN SCALE: 0/10 LOCATION: chest TECHNIQUE: Volumetric scanning of the chest was performed using a pulmonary embolism protocol MIP images were re constructed. Using automated exposure control and adjustment of the mA and/or kV according to patien t size, radiation dose was kept as low as reasonably achievable to obtain optimal diagnostic quality images. DICOM format image data is available electronically for review and comparison. Follow-up recommendations for detected pulmonary nodules are based at a minimum on nodule size and pa tient risk factors according to Fleischner Society Guidelines. FINDINGS: There is minimal patchy ground glass infiltrate right upper lobe, right middle lobe and lower lobes a s well as the left upper lobe. There is bronchiectasis with peribronchial thickening. There is adenop athy in the mediastinum with prominent subcarinal node measuring 1.5 cm, bilateral hilar adenopathy u p to 1.7 cm on the right, and calcified left hilar 1.1 cm node. Coronary artery calcification is pres ent. Calcified splenic granulomas as well as calcified left lower lobe granuloma and hepatic granulom a identified. Small bilateral effusions. No evidence of pulmonary embolism. CONCLUSION: No evidence of pulmonary embolism. Bilateral scattered pulmonary infiltrates. Please see above discus thai. Jensen Crowley MD on October 24, 2017 at 21:02 Board Certified Radiologist. This report was verified electronically.
[2017-10-24 21:54] LABS: LACTIC ACID SEPSIS PROTOCOL 3.9 mmol/L (0.4-2.0)
[2017-10-25] VITALS (7 sets, daily range): BP systolic 136–150; BP diastolic 62–69; PULSE 64–78; RESP 16–24; TEMP 97.6–98.4; O2SAT 90–97
[2017-10-25] MEDS: SODIUM CHLOR 0.9% 1000 ML INJ 1,000 ML IV SCH ×2 (04:00→12:40)
[2017-10-25] MEDS: RESP: ALBUTEROL 2.5 MG/IPRATROPIUM 0.5 MG NEB (SCH) INH ×2 (08:27→12:00)
[2017-10-25] MEDS: SODIUM CHLORIDE 0.9% FLUSH 10 ML FLUSH IV FLUSH SCH (09:00)
[2017-10-25 09:15] LABS: BASOPHIL % 0.1 % (0.0-2.0); HEMATOCRIT 36.2 % (39.0-51.0); HEMOGLOBIN 12.4 GM/DL (13.0-17.0); LYMPH % 5.8 % (9.0-44.0); LYMPHOCYTE # 1.2 TH/MM3 (1.0-4.8); MEAN CELL VOLUME 91.8 FL (80.0-100.0); MEAN CORPUSCULAR HEMOGLOBIN 31.5 PG (27.0-34.0); MEAN CORPUSCULAR HGB CONC 34.3 % (32.0-36.0); MEAN PLATELET VOLUME 8.4 FL (7.0-11.0); MONO % 7.6 % (0.0-8.0); MONOCYTE # 1.6 TH/MM3 (0-0.9); NEUT % 86.5 % (16.0-70.0); PLATELET COUNT 281 TH/MM3 (150-450); RED BLOOD COUNT 3.95 MIL/MM3 (4.50-5.90); RED CELL DISTRIBUTION WIDTH 13.5 % (11.6-17.2); WHITE BLOOD COUNT 20.9 TH/MM3 (4.0-11.0)
[2017-10-25] MEDS: guaiFENesin E.R. 600 MG TAB PO SCH (09:23)
[2017-10-25] MEDS: LEVOFLOXACIN 500 MG TAB PO SCH (09:23)
[2017-10-25] MEDS: predniSONE 20 MG TAB PO SCH (09:23)
[2017-10-25 10:08] LABS: CALCIUM 8.7 MG/DL (8.5-10.1); CREATININE 0.88 MG/DL (0.60-1.30)
[2017-10-25] MEDS ORDERED: guaiFENesin ER PO (10:11)
[2017-10-25] MEDS ORDERED: LEVA500T33 PO (10:11)
[2017-10-25] MEDS ORDERED: PRED20 PO (10:11)
--- NOTE | 2017-10-25 10:12 | HHI.DS ---
Discharge Summary Admission Date Oct 23, 2017 at 18:02 Discharge Date: Oct 25, 2017 Admitting Diagnosis Sepsis/Pneumonia (1) Diabetes ICD Code: E11.9 - Type 2 diabetes mellitus without complications (2) Hyperlipidemia ICD Code: E78.5 - Hyperlipidemia, unspecified (3) Acute respiratory failure ICD Code: J96.00 - Acute respiratory failure, unspecified whether with hypoxia or hypercapnia Procedures none Brief History - From Admission 71-year-old white male with history of hyperlipidemia presents with a 4 week history of progressive worsening shortness of breath and persistent cough. He also reports associated sore throat and sinus congestion. He has had increased fatigue and weakness due to the persistent symptoms. He reports some mild fever but no significant chills. He denies any symptoms of dysuria nor any diarrhea. He has not had any nausea or vomiting but has had decreased oral intake. He had recently traveled to [facility] in the [facility] also with his at bedside who does not have any of his symptoms. He denies any history of asthma or any lung disease. He states taking vwxa-zaq-lgbyybx medication has not improved his symptoms. 0 CBC/BMP: 10/25/17 0809 10/25/17 0809 Significant Findings Laboratory Tests Test 10/23/17 13:30 10/23/17 15:10 10/23/17 15:22 10/23/17 17:25 White Blood Count 15.2 TH/MM3 (4.0-11.0) Red Blood Count 4.35 MIL/MM3 (4.50-5.90) Neutrophils (%) (Auto) 72.8 % (16.0-70.0) Monocytes (%) (Auto) 8.9 % (0.0-8.0) Neutrophils # (Auto) 11.1 TH/MM3 (1.8-7.7) Monocytes # (Auto) 1.4 TH/MM3 (0-0.9) Urine Protein 100 mg/dL (NEG-TRACE) Urine Mucus FEW /lpf (OCC) Lactic Acid Level 2.8 mmol/L (0.4-2.0) Creatinine 1.31 MG/DL (0.60-1.30) Random Glucose 185 MG/DL (74-106) Albumin 2.9 GM/DL (3.4-5.0) Estimat Glomerular Filtration Rate 54 ML/MIN (>89) Test 10/23/17 17:30 10/24/17 06:50 10/24/17 21:21 10/25/17 00:40 Lactic Acid Level 4.7 mmol/L (0.4-2.0) 3.9 mmol/L (0.4-2.0) 2.5 mmol/L (0.4-2.0) White Blood Count 14.0 TH/MM3 (4.0-11.0) Red Blood Count 3.91 MIL/MM3 (4.50-5.90) Hemoglobin 12.2 GM/DL (13.0-17.0) Hematocrit 36.0 % (39.0-51.0) Neutrophils (%) (Auto) 88.2 % (16.0-70.0) Lymphocytes (%) (Auto) 7.5 % (9.0-44.0) Neutrophils # (Auto) 12.3 TH/MM3 (1.8-7.7) Random Glucose 166 MG/DL (74-106) Chloride Level 111 MEQ/L (98-107) Carbon Dioxide Level 20.9 MEQ/L (21.0-32.0) Test 10/25/17 08:09 10/25/17 09:15 White Blood Count 20.9 TH/MM3 (4.0-11.0) Red Blood Count 3.95 MIL/MM3 (4.50-5.90) Hemoglobin 12.4 GM/DL (13.0-17.0) Hematocrit 36.2 % (39.0-51.0) Neutrophils (%) (Auto) 86.5 % (16.0-70.0) Lymphocytes (%) (Auto) 5.8 % (9.0-44.0) Neutrophils # (Auto) 18.0 TH/MM3 (1.8-7.7) Monocytes # (Auto) 1.6 TH/MM3 (0-0.9) Blood Urea Nitrogen 23 MG/DL (7-18) Random Glucose 128 MG/DL (74-106) Chloride Level 111 MEQ/L (98-107) Estimat Glomerular Filtration Rate 86 ML/MIN (>89) Imaging Last Impressions CT Angiography 10/24/17 0000 Signed Impressions: Service Date/Time: Tuesday, October 24, 2017 20:29 - CONCLUSION: No evidence of pulmonary embolism. Bilateral scattered pulmonary infiltrates. Please see above discussion. Jensen Crowley MD Chest X-Ray 10/23/17 1246 Signed Impressions: Service Date/Time: Monday, October 23, 2017 13:36 - CONCLUSION: 1. Post surgical features with subtle bilateral lower lobe patchy airspace disease, presumably atelectasis. Uri Suero MD PE at Discharge GENERAL: This is a well-nourished, well-developed patient, in no apparent distress. CARDIOVASCULAR: Regular rate and rhythm without murmurs, gallops, or rubs. RESPIRATORY: Left basilar crackles and rhonchi GASTROINTESTINAL: Abdomen soft, non-tender, nondistended. No hepato-splenomegaly , or palpable masses. No guarding. MUSCULOSKELETAL: Extremities without clubbing, cyanosis, or edema. NEUROLOGICAL: Awake and alert. Cranial nerves II through XII intact. Motor and sensory grossly within normal limits. Five out of 5 muscle strength in all muscle groups. Normal speech. Hospital Course 1. Severe sepsis present on admission due to likely underlying community- acquired pneumonia with presenting symptoms of leukocytosis and tachypnea -IV fluid hydration, IV Rocephin and Zithromax with repeat lactic acid nl. Bronchodilators and supportive care. Follow-up with blood cultures ntd. Consult infectious disease, appreciate recommendations, discussed with Dr Sanchez ID recent international travels. DC IV abx . Start Levaquin oral. CT chest with PE protocol r.o PE or pneumonitis/pneumonia better imaging matt in view of extensive travel history. Check Urine legionella antigen, Urine pneumo antigen neg. Influ A/B neg . Sputum cx neg Follow cultures follow clinically, improving.. CT chest without OK, patient with bilat PNA, all other cultures negative and clinically improved, patient insists going home also, DC home with home health and O2 on levaquin Patient with acute respiratory failure requiring O2 supplement. Failed o2 walking test needs O2 at home. CM consulted for DC plan 2. History of hyperlipidemia- continue with Zetia and Lipitor. Improving. DC home with home health needs O2 at home. Failed O2 walking test , CM consulted for DC arrangements\. To follow up as OP with PCP and consultants Pt Condition on Discharge: Stable Discharge Disposition: Disch w/ Home Health Serv Discharge Time: > 30 minutes Discharge Instructions DIET: Follow Instructions for: Heart Healthy Diet, Diabetic Diet Activities you can perform: Regular-No Restrictions Follow up Referrals: PCP Follow-up - 2-3 Days Pulmonology - 1 Week New Medications: Albuterol 18 GM Inh (Ventolin Hfa 18 GM Inh) 90 Mcg/Act Aer 2 PUFF INH Q4-6H PRN for SHORTNESS OF BREATH, #1 INHALER 0 Refills Oxygen (O2) (Oxygen (O2)) Device LITER ANNABELLA.CANULA CONTINUOUS for Prevent Hypoxemia, #2 Oxygen Concentrator Portable Gaseous 2 L/min via Nasal Canula Continuous For 99 months Levofloxacin (Levaquin) 500 Mg Tablet 500 MG PO DAILY for pneumonia, #7 MG Prednisone (Prednisone) 20 Mg Tab 20 MG PO BID for Shortness of Breath, #7 TAB [guaiFENesin ER] () 600 MG TABCR 600 MG PO BID for 5 Days Continued Medications: Aspirin (Aspirin) 81 Mg Tab 81 MG PO DAILY, 0 Refills Atorvastatin (Lipitor 40 Mg Tab) 40 Mg Tab 40 MG PO DAILY, TAB Escitalopram Oxalate (Lexapro) 10 Mg Tab 10 MG PO DAILY, TAB Ezetimibe (Zetia) 10 Mg Tab 10 MG PO DAILY, TAB Hydrocodone/Acetaminophen 5 mg/325 mg (Lortab 5 mg/325 mg) 1 Tab 1-2 TAB PO Q6HR PRN for PAIN, #20 TAB Ibuprofen (Ibuprofen) 800 Mg Tab 800 MG PO Q6H PRN for PAIN, #30 TAB Faye Alcantar MD Oct 25, 2017 10:12
--- NOTE | 2017-10-25 10:13 | HHI.FF ---
Face to Face Verification Diagnosis: (1) Acute respiratory failure (2) Diabetes (3) Hyperlipidemia (4) Wheezing (5) Sepsis (6) Right lower lobe pneumonia Home Health Nursing Order: Medical education Signs/symptoms of disease process Oxygen administration education Medication education-adverse effect Nursing assessment with vital signs I have seen patient Sridhar Ridley on 10/25/17. My clinical findings support the need for the requested home health care services because: Ltd mobility - disease progression Patient has SOB I certify that my clinical findings support that this patient is homebound because: Post-op weakness Hx COPD- exertion dyspnea/weakness Faye Alcantar MD Oct 25, 2017 10:13
[2017-10-25] MEDS ORDERED: OXYGENDME NAS.CANULA (12:59)
[2017-10-25] MEDS ORDERED: VENTAER INH (13:00)
--- NOTE | 2017-10-25 15:35 | HHI.PR ---
Subjective Remarks In the chain Patient says he feels imprpved and he wants to go home. No n/v/d/ c. Denies sob she is however requiring O2 by NC and is not on O2 at home Failed O2 walking test. Objective Vitals Vital Signs Date Time Temp Pulse Resp B/P (MAP) Pulse Ox O2 Delivery O2 Flow Rate FiO2 10/25/17 12:10 3.00 10/25/17 12:00 98.0 66 22 143/64 (90) 97 10/25/17 08:35 93 Nasal Cannula 3.00 10/25/17 08:00 98.1 78 24 136/62 (86) 90 10/25/17 08:00 68 10/25/17 04:19 68 10/25/17 04:00 Nasal Cannula 2.00 10/25/17 04:00 97.6 68 16 150/66 (94) 93 10/25/17 00:26 64 10/25/17 00:00 98.4 65 16 144/69 (94) 95 10/25/17 00:00 94 Nasal Cannula 2.00 10/24/17 21:20 67 10/24/17 21:00 Room Air 10/24/17 20:00 98.0 74 18 140/64 (89) 93 10/24/17 16:00 97.8 59 20 138/63 (88) 96 10/24/17 15:46 57 I/O 10/24/17 10/24/17 10/24/17 10/25/17 10/25/17 10/25/17 06:59 14:59 22:59 06:59 14:59 22:59 Intake Total 1100 ml 880 ml 1550 ml 1000 ml Balance 1100 ml 880 ml 1550 ml 1000 ml Intake Oral 780 ml 300 ml IV Total 1100 ml 100 ml 1250 ml 1000 ml # Voids 3 2 2 Result Diagram: 10/25/17 0809 10/25/17 [address] Angiography 10/24/17 0000 Signed Impressions: Service Date/Time: Tuesday, October 24, 2017 20:29 - CONCLUSION: No evidence of pulmonary embolism. Bilateral scattered pulmonary infiltrates. Please see above discussion. Jensen Crowley MD Chest X-Ray 10/23/17 1246 Signed Impressions: Service Date/Time: Monday, October 23, 2017 13:36 - CONCLUSION: 1. Post surgical features with subtle bilateral lower lobe patchy airspace disease, presumably atelectasis. Uri Suero MD Objective Remarks GENERAL: This is a well-nourished, well-developed patient, in no apparent distress. CARDIOVASCULAR: Regular rate and rhythm without murmurs, gallops, or rubs. RESPIRATORY: Left basilar crackles and rhonchi GASTROINTESTINAL: Abdomen soft, non-tender, nondistended. No hepato-splenomegaly , or palpable masses. No guarding. MUSCULOSKELETAL: Extremities without clubbing, cyanosis, or edema. NEUROLOGICAL: Awake and alert. Cranial nerves II through XII intact. Motor and sensory grossly within normal limits. Five out of 5 muscle strength in all muscle groups. Normal speech. A/P Assessment and Plan 1. Severe sepsis present on admission due to likely underlying community- acquired pneumonia with presenting symptoms of leukocytosis and tachypnea -IV fluid hydration, IV Rocephin and Zithromax with repeat lactic acid nl. Bronchodilators and supportive care. Follow-up with blood cultures ntd. Consult infectious disease, appreciate recommendations, discussed with Dr Daniel STEVENS recent international travels. DC IV abx . Start Levaquin oral. CT chest with PE protocol r.o PE or pneumonitis/pneumonia better imaging matt in view of extensive travel history. Check Urine legionella antigen, Urine pneumo antigen neg. Influ A/B neg . Sputum cx neg Follow cultures follow clinically, improving.. CT chest without TN, patient with bilat PNA, all other cultures negative and clinically improved, patient insists going home also, DC home with home health and O2 on levaquin Patient with acute respiratory failure requiring O2 supplement. Failed o2 walking test needs O2 at home. CM consulted for DC plan 2. History of hyperlipidemia- continue with Zetia and Lipitor. 3. DVT prophylaxis Lovenox. Discussed with the patient, nurse, ID specialist Faye Van MD Oct 25, 2017 15:35
== END 2017-10-25 16:13 | disposition home health service (06) | DRG 871 ==
LOC: NEPD 11:37 → NEDA 18:02 → N04B 19:35
PROVIDERS: ADMIT Hospitalist; ATTEND Hospitalist
DX: A41.9 Sepsis, unspecified organism (principal); J18.9 Pneumonia, unspecified organism; J96.00 Acute respiratory failure, unspecified whether with hypoxia or hypercapnia; R65.21 Severe sepsis with septic shock; N17.9 Acute kidney failure, unspecified; E78.5 Hyperlipidemia, unspecified; J02.9 Acute pharyngitis, unspecified; E11.9 Type 2 diabetes mellitus without complications; I10 Essential (primary) hypertension; R53.1 Weakness; J04.0 Acute laryngitis; Z99.81 Dependence on supplemental oxygen; Z95.1 Presence of aortocoronary bypass graft
CPT/HCPCS: 71046; 71275; 76937; 80048; 80053; 81001; 83605; 85025; 86606; 87040; 87070; 87081; 87205; 87449; 87633; 87804; 87880; 93005; 94150; 94618; 94640; 94664; 94667; 96361; 96365; 96375; J0456; J0696; J1580; J1650; J2930; J7030; J7050; J7512; Q9967